=== PATIENT | female | born 2000 | race Caucasian/White ===

== ENCOUNTER 2021-04-18 21:46 | Emergency (ER) | payer BC, SELFPAY ==
[2021-04-18 21:58] VITALS: BP 139/98; PULSE 89; RESP 20; TEMP 36.5; O2SAT 99; BMI 28.1
--- NOTE | 2021-04-18 21:58 | W.ED.ABDPA2 ---
Documented by User: AYSHA Farfan 04/19/21 01:00 HPI - Abdominal Pain General: Chief Complaint: Abdominal Pain Stated Complaint: ABD Pain Time Seen by Provider: 04/18/21 21:58 History of Present Illness: HPI narrative: 20-year-old female comes in today with complaints of epigastric pain for the last 3 to 4 days. Patient has been in to to the emergency room as already. Patient was 1st diagnosed in [place] 2 days ago with food poisoning. Patient then was seen last night at [facility] and was told that she had a ulcer. Patient states the pain today is not as bad as it was last night. Patient reports that her pain was able to be controlled at both visits once with fentanyl and once with morphine. Patient appears well. Patient appears in moderate pain. Patient denies any fever. Patient denies any diarrhea or constipation. Patient does report an episode of emesis today. Patient noted no blood in her emesis. Patient has taken some Tylenol for her pain with no relief. Patient takes olanzapine routinely for mental health condition. Patient reports that her pain is similar to the time she had gallbladder attack. Patient has had her gallbladder removed. MD elicited complaint: abdominal pain Review of Systems General: Reports: 10 or more systems reviewed and unremarkable except in HPI and below GI: Reports: abdominal pain Physical Exam Const: COMMON NORMALS: no acute distress and patient oriented x3 GENERAL APPEARANCE: cooperative HENMT: COMMON NORMALS: normocephalic, TM's normal bilaterally and Normal external nose present HEAD & SCALP: normal to inspection and normocephalic NOSE: Normal external nose present TYMPANIC MEMBRANE: TM's normal bilaterally MOUTH: Normal oral and palatal mucosa present THROAT: posterior oropharynx normal Eye: GENERAL EYE: appearance normal, both eyes and all related structures Neck/C-Spine: COMMON NORMALS: full ROM Lymph: LYMPHATIC: no lymphadenopathy noted Chest: COMMONS NORMALS: normal inspection of the chest Resp: COMMON NORMALS: normal respiratory effort EFFORT & INSPECTION: Yes able to speak in complete sentences Cardio: COMMON NORMALS: regular rate and regular rhythm RATE: regular rate RHYTHM: regular rhythm GI: COMMON NORMALS: Soft to palpation AUSCULTATION: Yes normoactive bowel sounds PALPATION: Yes Soft to palpation and Yes Tenderness to palpation present (GI) (Epigastric) : COMMON NORMALS: Yes no CVA tenderness BLADDER/KIDNEY EXAM: Yes no CVA tenderness Back/Pelvis: COMMON NORMALS: no CVA tenderness and thoracic and lumbar spine normal to inspection Extremity: COMMON NORMALS: normal to inspection Neuro: COMMON NORMALS: patient oriented x3 and moves all extremities Psych: COMMON NORMALS: mental status grossly normal and cooperative Skin: COMMON NORMALS: no rashes or lesions noted GENERAL SKIN EXAM: no rashes or lesions noted Course ED course: 2354, reevaluated patient she states her abdominal pain has improved some. Patient is resting quietly. We are awaiting CT report. Vital Signs: Vital signs: Vital Signs Temperature 97.7 F 04/18/21 21:58 Pulse Rate 78 04/19/21 00:08 Respiratory Rate 18 04/19/21 00:08 Blood Pressure 110/78 04/19/21 00:08 Pulse Oximetry 97 04/19/21 00:08 MDM - Abdominal Pain MDM Narrative: Medical decision making narrative: 20-year-old female patient comes in today for complaints of epigastric abdominal pain. On exam patient has significant discomfort on palpation of the mid epigastric area. No CVA tenderness. Skin is warm and dry. Vital signs are normal. Differential diagnosis includes but not limited to gastritis, pancreatitis, gastroenteritis, urinary tract infection. Urinalysis was unremarkable. CBC and CMP noted some mild elevation in liver enzymes at 40, and 70. CT scan noted some mucosal wall thickening of the stomach and lower esophagus, parenchymal changes were noted to the left kidney suggesting a recent pyelonephritis with scarring, mucosal thickening of the bladder wall was noted also. Recommended patient be treated for gastritis with pantoprazole. We will continue her on antibiotics for her urinary tract infection. Patient will need to follow-up with primary care for further evaluation and referral for endoscopy of the stomach. Lab Data: Labs: Lab Results 04/18/21 04/18/21 04/18/21 22:57 22:57 22:57 WBC 6.4 10^3/uL 10^3/ uL (4.0-10.0) RBC 3.98 10^6/uL L 10 ^6/uL (4.1-5.3) Hgb 12.6 g/dL g/dL (11.5-15.3) Hct 36.3 % L % (37.0-47.0) MCV 91.2 fl fl (81-99) MCH 31.7 pg pg (28.0-34.0) MCHC 34.7 g/dL g/dL (30.0-36.0) RDW 11.6 % L % (12.1-15.1) Plt Count 188 10^3/cmm 10^3 /cmm (130-400) MPV 11.4 fL H fL (7.4-10.4) Neut % (Auto) 66.0 % % Lymph % (Auto) 24.8 % % J[place] % (Auto) 8.3 % % Eos % (Auto) 0.6 % % Baso % (Auto) 0.3 % % Neut # (Auto) 4.23 10^3/uL 10^3 /uL (1.8-7.7) Lymph # (Auto) 1.6 10^3/uL 10^3/ uL (0.8-4.8) J[place] # (Auto) 0.5 10^3/uL 10^3/ uL (0.2-0.9) Eos # (Auto) 0.0 10^3/uL 10^3/ uL (0.0-0.8) Baso # (Auto) 0.0 10^3/uL 10^3/ uL (0.0-0.1) Nucleated RBC % (a uto) 0 % % Nucleated RBCs # 0.0 /100WBC /100W BC Sodium 139 mmol/L mmol/L (136-145) Potassium 3.6 mmol/L mmol/L (3.5-5.1) Chloride 103 mmol/L mmol/L (98-107) Carbon Dioxide 27 mmol/L mmol/L (22-29) Anion Gap 12.6 (5-19) BUN 7 mg/dL mg/dL (6-20) Creatinine 0.8 mg/dL mg/dL (0.5-0.9) GFR Calculation 90.5 mL/min mL/mi n (90-130) Glucose 93 mg/dL mg/dL (65-115) Calculated Osmolal ity 286 mOsm/kg mOsm/ kg (285-295) Calcium 9.1 mg/dL mg/dL (8.5-10.5) Total Bilirubin 0.3 mg/dL mg/dL (0.15-1.2) AST 40 U/L H U/L (0-32) ALT 73 U/L H U/L (0-33) Alkaline Phosphata se 75 IU/L IU/L (35-105) Total Protein 6.7 g/dL g/dL (6.6-8.7) Albumin 4.3 g/dL g/dL (3.5-5.2) Globulin 2.4 g/dL g/dL (1.3-4.6) Lipase 22 U/L U/L (13-60) HCG, Qual Negative (Negative) Urine Color Urine Appearance Urine pH Ur Specific Gravit y Urine Protein Urine Glucose (UA) Urine Ketones Urine Blood Urine Nitrate Urine Bilirubin Urine Urobilinogen Ur Leukocyte Keri ase 04/18/21 23:05 WBC RBC Hgb Hct MCV MCH MCHC RDW Plt Count MPV Neut % (Auto) Lymph % (Auto) J[place] % (Auto) Eos % (Auto) Baso % (Auto) Neut # (Auto) Lymph # (Auto) J[place] # (Auto) Eos # (Auto) Baso # (Auto) Nucleated RBC % (a uto) Nucleated RBCs # Sodium Potassium Chloride Carbon Dioxide Anion Gap BUN Creatinine GFR Calculation Glucose Calculated Osmolal ity Calcium Total Bilirubin AST ALT Alkaline Phosphata se Total Protein Albumin Globulin Lipase HCG, Qual Urine Color Yellow (Yellow) Urine Appearance Clear (CLEAR) Urine pH 7 (5-7) Ur Specific Gravit y 1.005 (1.005-1.030) Urine Protein Neg (Negative) Urine Glucose (UA) Norm (Normal) Urine Ketones Negative (Negative) Urine Blood Neg (Negative) Urine Nitrate Negative (Negative) Urine Bilirubin Neg (Negative) Urine Urobilinogen 1 mg/dL H mg/dL (Negative) Ur Leukocyte Keri ase Negative (Negative) Discharge Plan Discharge Patient Disposition: Home Clinical Impression: Gastritis Qualifiers: Gastritis type: other gastritis Chronicity: acute Gastritis bleeding: without bleeding Qualified Code(s): K29.00 - Acute gastritis without bleeding UTI (urinary tract infection) Qualifiers: Urinary tract infection type: acute cystitis Hematuria presence: without hematuria Qualified Code(s): N30.00 - Acute cystitis without hematuria Condition: Stable Prescriptions: New cephalexin 500 mg capsule 500 mg PO BID 5 Days Qty: 10 RF: 0 pantoprazole 40 mg tablet,delayed release (DR/EC) 40 mg PO DAILY 28 Days Qty: 28 RF: 0 Discharge Orders: Discharge ED (Routine); Ordered 04/19/21 Ordered By: Dane Hopper Referrals: Fred Null MD [Primary Care Provider] - Discharge Diet: Usual diet Discharge Activity: Increase activity as tolerated Patient Instructions: Gastritis (ED), Diet for Stomach Ulcers and Gastritis (ED), Opioid Safety Activity Restrictions/Additional Instructions: Home and rest. Drink plenty of water. Avoid carbonated beverages, spicy foods, greasy foods, and really acidic foods. Follow recommendations of diet for ulcers and gastritis. Use pantoprazole daily, take it 30 minutes before your first meal of the day. Use cephalexin twice a day for the next 5 days for your urinary tract infection. Follow-up with primary care in 3 days for recheck. You may need to have a endoscopy of your stomach to evaluate for further ulcer and gastritis concerns. Coding Level of Care Code ED Urgent Care Technician for Chg Fwd Exam Comprehensive Documented by User: Uli Vieyra DO 04/19/21 01:17 HPI - Abdominal Pain General: Chief Complaint: Abdominal Pain Stated Complaint: ABD Pain Time Seen by Provider: 04/18/21 21:58 Course Vital Signs: Vital signs: Vital Signs Temperature 97.7 F 04/18/21 21:58 Pulse Rate 78 04/19/21 00:08 Respiratory Rate 18 04/19/21 00:08 Blood Pressure 110/78 04/19/21 00:08 Pulse Oximetry 97 04/19/21 00:08 MDM - Abdominal Pain MDM Narrative: Medical decision making narrative: This patient was originally seen by AYSHA Pan. I agree with his history, evaluation, and treatment. Lab Data: Labs: Lab Results 04/18/21 04/18/21 04/18/21 22:57 22:57 22:57 WBC 6.4 10^3/uL 10^3/ uL (4.0-10.0) RBC 3.98 10^6/uL L 10 ^6/uL (4.1-5.3) Hgb 12.6 g/dL g/dL (11.5-15.3) Hct 36.3 % L % (37.0-47.0) MCV 91.2 fl fl (81-99) MCH 31.7 pg pg (28.0-34.0) MCHC 34.7 g/dL g/dL (30.0-36.0) RDW 11.6 % L % (12.1-15.1) Plt Count 188 10^3/cmm 10^3 /cmm (130-400) MPV 11.4 fL H fL (7.4-10.4) Neut % (Auto) 66.0 % % Lymph % (Auto) 24.8 % % J[place] % (Auto) 8.3 % % Eos % (Auto) 0.6 % % Baso % (Auto) 0.3 % % Neut # (Auto) 4.23 10^3/uL 10^3 /uL (1.8-7.7) Lymph # (Auto) 1.6 10^3/uL 10^3/ uL (0.8-4.8) J[place] # (Auto) 0.5 10^3/uL 10^3/ uL (0.2-0.9) Eos # (Auto) 0.0 10^3/uL 10^3/ uL (0.0-0.8) Baso # (Auto) 0.0 10^3/uL 10^3/ uL (0.0-0.1) Nucleated RBC % (a uto) 0 % % Nucleated RBCs # 0.0 /100WBC /100W BC Sodium 139 mmol/L mmol/L (136-145) Potassium 3.6 mmol/L mmol/L (3.5-5.1) Chloride 103 mmol/L mmol/L (98-107) Carbon Dioxide 27 mmol/L mmol/L (22-29) Anion Gap 12.6 (5-19) BUN 7 mg/dL mg/dL (6-20) Creatinine 0.8 mg/dL mg/dL (0.5-0.9) GFR Calculation 90.5 mL/min mL/mi n (90-130) Glucose 93 mg/dL mg/dL (65-115) Calculated Osmolal ity 286 mOsm/kg mOsm/ kg (285-295) Calcium 9.1 mg/dL mg/dL (8.5-10.5) Total Bilirubin 0.3 mg/dL mg/dL (0.15-1.2) AST 40 U/L H U/L (0-32) ALT 73 U/L H U/L (0-33) Alkaline Phosphata se 75 IU/L IU/L (35-105) Total Protein 6.7 g/dL g/dL (6.6-8.7) Albumin 4.3 g/dL g/dL (3.5-5.2) Globulin 2.4 g/dL g/dL (1.3-4.6) Lipase 22 U/L U/L (13-60) HCG, Qual Negative (Negative) Urine Color Urine Appearance Urine pH Ur Specific Gravit y Urine Protein Urine Glucose (UA) Urine Ketones Urine Blood Urine Nitrate Urine Bilirubin Urine Urobilinogen Ur Leukocyte Keri ase 04/18/21 23:05 WBC RBC Hgb Hct MCV MCH MCHC RDW Plt Count MPV Neut % (Auto) Lymph % (Auto) [place] % (Auto) Eos % (Auto) Baso % (Auto) Neut # (Auto) Lymph # (Auto) [place] # (Auto) Eos # (Auto) Baso # (Auto) Nucleated RBC % (a uto) Nucleated RBCs # Sodium Potassium Chloride Carbon Dioxide Anion Gap BUN Creatinine GFR Calculation Glucose Calculated Osmolal ity Calcium Total Bilirubin AST ALT Alkaline Phosphata se Total Protein Albumin Globulin Lipase HCG, Qual Urine Color Yellow (Yellow) Urine Appearance Clear (CLEAR) Urine pH 7 (5-7) Ur Specific Gravit y 1.005 (1.005-1.030) Urine Protein Neg (Negative) Urine Glucose (UA) Norm (Normal) Urine Ketones Negative (Negative) Urine Blood Neg (Negative) Urine Nitrate Negative (Negative) Urine Bilirubin Neg (Negative) Urine Urobilinogen 1 mg/dL H mg/dL (Negative) Ur Leukocyte Keri ase Negative (Negative) Discharge Plan Discharge Patient Disposition: Home Clinical Impression: Gastritis Qualifiers: Gastritis type: other gastritis Chronicity: acute Gastritis bleeding: without bleeding Qualified Code(s): K29.00 - Acute gastritis without bleeding UTI (urinary tract infection) Qualifiers: Urinary tract infection type: acute cystitis Hematuria presence: without hematuria Qualified Code(s): N30.00 - Acute cystitis without hematuria Condition: Stable Prescriptions: New cephalexin 500 mg capsule 500 mg PO BID 5 Days Qty: 10 RF: 0 pantoprazole 40 mg tablet,delayed release (DR/EC) 40 mg PO DAILY 28 Days Qty: 28 RF: 0 Discharge Orders: Discharge ED (Routine); Ordered 04/19/21 Ordered By: Dane Hopper Referrals: Fred Null MD [Primary Care Provider] - Discharge Diet: Usual diet Discharge Activity: Increase activity as tolerated Patient Instructions: Gastritis (ED), Diet for Stomach Ulcers and Gastritis (ED), Opioid Safety Activity Restrictions/Additional Instructions: Home and rest. Drink plenty of water. Avoid carbonated beverages, spicy foods, greasy foods, and really acidic foods. Follow recommendations of diet for ulcers and gastritis. Use pantoprazole daily, take it 30 minutes before your first meal of the day. Use cephalexin twice a day for the next 5 days for your urinary tract infection. Follow-up with primary care in 3 days for recheck. You may need to have a endoscopy of your stomach to evaluate for further ulcer and gastritis concerns. Coding Level of Care Code ED Urgent Care Technician for Chg Fwd Exam Comprehensive
--- NOTE | 2021-04-18 22:10 | CTR_ITS ---
PROCEDURE INFORMATION: Exam: CT Abdomen And Pelvis With Contrast Exam date and time: 04/18/2021 10:10 PM Age: 20 years old Clinical indication: Abdominal pain; Prior surgery; Surgery date: 6+ months; Surgery type: Gb; Patient HX: C/O epigastric pain; Additional info: Epigastric diffuse pain TECHNIQUE: Imaging protocol: Computed tomography of the abdomen and pelvis with contrast. Radiation optimization: All CT scans at this facility use at least one of these dose optimization techniques: automated exposure control; mA and/or kV adjustment per patient size (includes targeted exams where dose is matched to clinical indication); or iterative reconstruction. Contrast material: OMNI 300; Contrast volume: 95 ml; Contrast route: INTRAVENOUS (IV); COMPARISON: No relevant prior studies available. RADIATION DOSE METRICS: Total DLP (mGy-cm): 1459.34 FINDINGS: Lungs: The lung bases are clear. Mediastinal space: There may be some mucosal/wall thickening involving the lower esophagus. This is nonspecific, but could represent evidence for esophagitis. Neoplasm not entirely excluded. Please correlate clinically. Liver: There is mild periportal edema in the liver. This is a nonspecific finding, that can be seen in hepatitis and other hepatic abnormalities. It can also be a nonsignificant finding, sometimes seen in overhydration. Please correlate clinically. Gallbladder and bile ducts: Prior cholecystectomy, no significant biliary tree dilation. Pancreas: Unremarkable. Spleen: Unremarkable. Adrenal glands: Unremarkable. Kidneys and ureters: The left kidney appears slightly smaller than the left, with mild and somewhat irregular parenchymal thinning/scarring. The appearance raises likelihood of prior episodes of pyelonephritis. Possibility of a few subtle areas of poor/decreased enhancement in the left kidney. Acute/active pyelonephritis might be considered, although these findings could also be related to chronic infection. Please correlate clinically. No significant hydronephrosis of either kidney. No visible ureteral calculus. No perinephric fluid. The right kidney appears essentially unremarkable. Stomach and bowel: Possibility of slightly thickened mucosa/wall in the distal antrum of the stomach. This is a nonspecific appearance, and could well be transient on CT, but could also represent evidence for gastritis or peptic ulcer disease. Please correlate clinically. No significant bowel distention. There are no CT findings to strongly suggest diverticulitis. Appendix: The appendix is visualized and appears normal. Intraperitoneal space: No free intraperitoneal air, or generalized ascites. Vasculature: No evidence for abdominal aortic aneurysm. Lymph nodes: No retroperitoneal adenopathy. Urinary bladder: Possible mild to moderate diffuse urinary bladder wall thickening. Evaluation is somewhat limited, as the bladder is not well distended. While nonspecific, this could indicate evidence for cystitis. Please correlate clinically. Reproductive: The right ovary contains a 12 mm dominant follicle versus very small cyst. Significance unlikely due to small size. Small amount of cul-de-sac fluid. Bones/joints: No significant acute finding. Soft tissues: No significant acute finding. CT/CT abdomen pelvis w con* [id number] IMPRESSION: 1. Left renal parenchymal scarring/thinning, probably related to prior infection. Subtle findings that could represent active/acute left pyelonephritis, although the findings are not specific. See above discussion. 2. No significant hydronephrosis of either kidney. No visible ureteral calculus. 3. Suspected urinary bladder wall thickening, possibly related to cystitis. 4. Possible thickened mucosa/wall in the distal stomach, see above discussion. 5. Normal appendix. 6. Mild periportal edema in the liver, see above. 7. Possibly some thickening of the lower esophagus, see above discussion. 8. The right ovary contains a 12 mm dominant follicle versus very small cyst. Significance unlikely due to small size. Small amount of cul-de-sac fluid. 9. Other findings discussed above. Radiation Dose CTDIVOL = (mGy): DLP = 1459.34 (mGy-cm)
[2021-04-18] MEDS: pantoprazole 40 mg SDV IVP (22:49)
[2021-04-18] MEDS: diphenhydrAMINE 50 mg/mL SDV 1mL 12.5 MG IVP (22:49)
[2021-04-18] MEDS: haloperidol inj 5 mg/mL INJ 1 mL 2.5 MG IVP (22:49)
[2021-04-18 23:09] LABS: Add Urine Microscopic? NO; Charge for UA Resulting for Rev
[2021-04-18 23:14] LABS: HCG, Serum Qual Negative (Negative)
[2021-04-18 23:14] LABS: Bilirubin Urine Neg (Negative); Blood Urine Neg (Negative); Glucose Urine UA Norm (Normal); Ketones Urine Negative (Negative); Leukocyte Esterase Urine Negative (Negative); Nitrate Urine Negative (Negative); Protein Urine Neg (Negative); Specific Gravity, Urine 1.005 (1.005-1.030); Urine Appearance Clear (CLEAR); Urine Color Yellow (Yellow); Urobilinogen Urine 1 mg/dL (Negative); pH Urine 7 (5-7)
[2021-04-18 23:19] LABS: Basophils % 0.3 %; Eosinophils % 0.6 %; Hematocrit 36.3 % (37.0-47.0); Hemoglobin 12.6 g/dL (11.5-15.3); Lymphocytes # 1.6 10^3/uL (0.8-4.8); Lymphocytes % 24.8 %; Mean Corpuscular HGB Conc 34.7 g/dL (30.0-36.0); Mean Corpuscular Hemoglobin 31.7 pg (28.0-34.0); Mean Corpuscular Volume 91.2 fl (81-99); Mean Platelet Volume 11.4 fL (7.4-10.4); Monocytes # 0.5 10^3/uL (0.2-0.9); Monocytes % 8.3 %; Neutrophils # 4.23 10^3/uL (1.8-7.7); Nucleated Red Blood Cells % 0 %; Platelet Count 188 10^3/cmm (130-400); Red Blood Count 3.98 10^6/uL (4.1-5.3); Red Cell Distribution Width 11.6 % (12.1-15.1); White Blood Count 6.4 10^3/uL (4.0-10.0)
[2021-04-18 23:23] LABS: Alanine Aminotransferase 73 U/L (0-33); Albumin Level 4.3 g/dL (3.5-5.2); Alkaline Phosphatase 75 IU/L (35-105); Anion Gap 12.6 (5-19); Aspartate Amino Transferase 40 U/L (0-32); Blood Urea Nitrogen 7 mg/dL (6-20); Calcium 9.1 mg/dL (8.5-10.5); Carbon Dioxide 27 mmol/L (22-29); Chloride 103 mmol/L (98-107); Globulin 2.4 g/dL (1.3-4.6); Glomerular Filtration Rate 90.5 mL/min (90-130); Glucose 93 mg/dL (65-115); Lipase 22 U/L (13-60); Osmolality Calculated 286 mOsm/kg (285-295); Potassium 3.6 mmol/L (3.5-5.1); Sodium 139 mmol/L (136-145); Total Bilirubin 0.3 mg/dL (0.15-1.2); Total Protein 6.7 g/dL (6.6-8.7)
[2021-04-18] MEDS: sodium chloride 0.9% 1,000 ML 999 ML IV (23:33)
[2021-04-18] MEDS: iohexol 300 mg/mL 100 mL Btl IV (23:37)
[2021-04-18 23:56] VITALS: BP 109/56; PULSE 88; RESP 18; O2SAT 99
[2021-04-19 00:08] VITALS: BP 110/78; PULSE 78; RESP 18; O2SAT 97
[2021-04-19] MEDS: HYDROcodone-acetaminophen 5-325 mg Tablet 1 TAB PO (01:01)
[2021-04-19] MEDS: cefTRIAXone 1,000 MG in sodium chloride 0.9% (plus) 50 ML 100 MG IV (01:01)
[2021-04-19 01:27] VITALS: BP 110/79; PULSE 62; RESP 16; O2SAT 98
--- NOTE | 2021-04-21 15:24 | DCPLANNER ---
mechanical project manager had message to speak with patient about getting established with a primary care physician. mechanical project manager called phone number [phone], unable to speak with patient at this time, and unable to leave a voicemail.
== END 2021-04-19 01:28 | disposition home or self-care (01) ==
PROVIDERS: Emergency Provider Nurse Practitioner Family; PCP Family Medicine
DX: K29.00 Acute gastritis without bleeding (principal); N30.00 Acute cystitis without hematuria
CPT/HCPCS: 74177; 80053; 81003; 83690; 84703; 85025; 96365; 96375; 99284; C9113; J0696; J1200; J1630; J7030; Q9967

== ENCOUNTER 2021-07-24 19:53 | Emergency (ER) | payer BC, MEDICAID, SELFPAY ==
[2021-07-24 20:05] VITALS: BP 119/79; PULSE 107; RESP 16; TEMP 36.7; O2SAT 99
--- NOTE | 2021-07-25 00:09 | ED_ITS ---
HPI - Abdominal Pain General: Chief Complaint: Abdominal Pain Stated Complaint: ADB Pain Time Seen by Provider: 07/24/21 23:56 History of Present Illness: Patient is a 20-year-old female comes to the ED with nausea vomiting and acid reflux. Symptoms started approximately 4 days ago. She has had these symptoms before approximately 3 months ago and was diagnosed with gastritis discharged home with Protonix. She says she has been taking her Protonix daily as prescribed and that has helped her acid reflux a lot. She is not sure what caused her acid reflux to get worse but said 4 days ago she started getting the epigastric burning along with nausea and vomiting. For the past couple days she has had trouble keeping any food down. Epigastric pain rated about 6 or 7 out of 10. Patient had her gallbladder removed 2 years ago. Associated Symptoms: Reports heartburn, nausea and vomiting; Denies chills, constipation, diarrhea, dysuria, fever(s), hematochezia and hematuria Related Data: Date of Last Menstrual Period: 04/03/21 Review of Systems Const: Denies: fever(s), chills or fatigue Eyes: Denies: change in vision or eye discomfort ENMT: Denies: throat pain, odynophagia, nasal discharge or nasal congestion Card: Denies: chest pain, palpitations, edema, swelling of feet/ankles, dyspnea on exertion or orthopnea Resp: Denies: dyspnea, productive cough or non-productive cough GI: Reports: nausea, vomiting and heartburn; Denies: abdominal pain, diarrhea, constipation or hematochezia : Denies: flank pain, dysuria or hematuria Musc: Denies: neck pain, back pain or extremity swelling Skin/Breast: Denies: rash or new lesions Neuro: Denies: headache(s), numbness in extremities or weakness in extremities PFS ED PFSH: Medical History No pertinent family history Surgical History Hx of cholecystectomy Female Reproductive History: Date of last menstrual period: 04/03/21 Physical Exam Const: COMMON NORMALS: no acute distress, patient oriented x3, healthy appearing and alert GENERAL APPEARANCE: cooperative and comfortable HENMT: COMMON NORMALS: normocephalic HEAD & SCALP: normocephalic MOUTH: Normal oral and palatal mucosa present THROAT: posterior oropharynx normal and uvula midline Eye: COMMON NORMALS: Equal, round and reactive pupils present GENERAL EYE: appearance normal, both eyes and all related structures PUPIL: Yes Equal, round and reactive pupils present Neck/C-Spine: COMMON NORMALS: supple GENERAL: Yes normal visual inspection Resp: COMMON NORMALS: normal respiratory effort, No retractions, No use of accessory muscles and clear to auscultation bilaterally AUSCULTATION: clear to auscultation bilaterally Cardio: COMMON NORMALS: regular rate, regular rhythm, S1 normal heart sound present, S2 normal heart sound present, No gallops present (Cardio), No clicks present (Cardio), No murmurs present (Cardio) and Peripheral pulses 2+ thro ughout RATE: regular rate RHYTHM: regular rhythm HEART SOUNDS: S1 normal heart sound present and S2 normal heart sound present PERIPHERAL PULSES: Peripheral pulses 2+ throughout GI: COMMON NORMALS: Normal to inspection, nondistended, normoactive bowel sounds present, Soft to palpation and no masses PALPATION: Yes Soft to palpation and Yes Tenderness to palpation present (GI) (epigastric region) Details: Negative for RUQ : COMMON NORMALS: Yes no CVA tenderness BLADDER/KIDNEY EXAM: Yes no CVA tenderness Back/Pelvis: COMMON NORMALS: no CVA tenderness Extremity: COMMON NORMALS: normal to inspection and no pedal edema Neuro: COMMON NORMALS: patient oriented x3 SENSORIUM/ORIENTATION: Yes alert GAIT: Yes Normal gait present Skin: GENERAL SKIN EXAM: dry skin Course ED course: After patient received IV fluids, Zofran and GI cocktail her symptoms improved greatly. Patient says her epigastric discomfort went down to 2 or 3 out of 10 Vital Signs: Vital signs: Vital Signs Temperature 98.1 F 07/24/21 20:05 Pulse Rate 107 H 07/24/21 20:05 Respiratory Rate 16 07/25/21 01:42 Blood Pressure 119/79 07/24/21 20:05 Pulse Oximetry 99 07/24/21 20:05 MDM - Abdominal Pain Medical Decision Making Patient is a 20-year-old female comes to the ED with nausea vomiting and acid reflux. Symptoms started approximately 4 days ago. She has had these symptoms before approximately 3 months ago and was diagnosed with gastritis discharged home with Protonix. She says she has been taking her Protonix daily as prescribed and that has helped her acid reflux a lot. She is not sure what caused her acid reflux to get worse but said 4 days ago she started getting the epigastric burning along with nausea and vomiting. Vital stable. Patient appears in no acute distress or pain. She has some mild epigastric tenderness but no other abdominal tenderness. Rest of exam is benign. Labs are unremar kable. Patient was given IV fluids, Zofran and GI cocktail. Patient's symptoms improved after meds. Patient diagnosed with acid reflux disease and discharged home with a refill prescription for Protonix. She also was sent home with a prescription for Zofran and sucralfate. She was told to follow-up with her PCP in the next 5-7days for reevaluation. She was given strict return to ED precautions. She was told to be on a clear liquid diet for the next 24 hours and advance slowly as tolerated. Patient understood and agreed with plan. Lab Data I reviewed the patient's lab results. : 07/25/21 00:26 07/25/21 00:26 Labs/Radiology: Laboratory Results WBC 6.3 10^3/uL (4.0-10.0) 07/25/21 00:26 RBC 4.30 10^6/uL (4.1-5.3) 07/25/21 00:26 Hgb 13.4 g/dL (11.5-15.3) 07/25/21 00:26 Hct 38.9 % (37.0-47.0) 07/25/21 00: MCV 90.5 fl (81-99) 07/25/21 00: MCH 31.2 pg (28.0-34.0) 07/25/21 00: MCHC 34.4 g/dL (30.0-36.0) 07/25/21 00: RDW 11.9 % (12.1-15.1) L 07/25/21 00:26 Plt Count 229 10^3/cmm (130-400) 07/25/21 00:26 MPV 11.1 fL (7.4-10.4) H 07/25/21 00: Neut % (Auto) 69.8 % 07/25/21 00:26 Lymph % (Auto) 18.5 % 07/25/21 00:26 [place] % (Auto) 9.8 % 07/25/21 00:26 Eos % (Auto) 1.4 % 07/25/21 00:26 Baso % (Auto) 0.3 % 07/25/21 00: Neut # (Auto) 4.41 10^3/uL (1.8-7.7) 07/25/21 00:26 Lymph # (Auto) 1.2 10^3/uL (0.8-4.8) 07/25/21 00:26 [place] # (Auto) 0.6 10^3/uL (0.2-0.9) 07/25/21 00:26 Eos # (Auto) 0.1 10^3/uL (0.0-0.8) 07/25/21 00: Baso # (Auto) 0.0 10^3/uL (0.0-0.1) 07/25/21 00:26 Nucleated RBC % (auto) 0 % 07/25/21 00: Nucleated RBCs # 0.0 /100WBC 07/25/21 00:26 Sodium 137 mmol/L (136-145) 07/25/21 00:26 Potassium 3.8 mmol/L (3.5-5.1) 07/25/21 00: Chloride 101 mmol/L (98-107) 07/25/21 00: Carbon Dioxide 23 mmol/L (22-29) 07/25/21 00:26 Anion Gap 16.8 (5-19) 07/25/21 00: BUN 9 mg/dL (6-20) 07/25/21 00: Creatinine 0.8 mg/dL (0.5-0.9) 07/25/21 00: GFR Calculation 90.5 mL/min (90-130) 07/25/21 00: Glucose 107 mg/dL (65-115) 07/25/21 00: Calculated Osmolality 283 mOsm/kg (285-295) L 07/25/21 00: Calcium 9.9 mg/dL (8.5-10.5) 07/25/21 00: Total Bilirubin 0.6 mg/dL (0.15-1.2) 07/25/21 00: AST 18 U/L (0-32) 07/25/21 00:26 ALT 17 U/L (0-33) 07/25/21 00:26 Alkaline Phosphatase 76 IU/L (35-105) 07/25/21 00:26 Total Protein 7.7 g/dL (6.6-8.7) 07/25/21 00:26 Albumin 4.9 g/dL (3.5-5.2) 07/25/21 00:26 Globulin 2.8 g/dL (1.3-4.6) 07/25/21 00:26 Lipase 18 U/L (13-60) 07/25/21 00:26 HCG, Qual Negative (Negative) 07/25/21 00:26 Urine Color Yellow (Yellow) 07/25/21 00:15 Urine Appearance Clear (CLEAR) 07/25/21 00:15 Urine pH 5 (5-7) 07/25/21 00:15 Ur Specific [place] 1.015 (1.005-1.030) 07/25/21 00:15 Urine Protein Neg (Negative) 07/25/21 00:15 Urine Glucose (UA) Norm (Normal) 07/25/21 00:15 Urine Ketones Negative (Negative) 07/25/21 00:15 Urine Blood Neg (Negative) 07/25/21 00:15 Urine Nitrate Negative (Negative) 07/25/21 00:15 Urine Bilirubin Neg (Negative) 07/25/21 00:15 Urine Urobilinogen Norm mg/dL (Negative) 07/25/21 00:15 Ur Leukocyte Esterase Trace (Negative) H 07/25/21 00:15 Urine RBC 0-4 /hpf (0-2) H 07/25/21 00:15 Urine WBC 10-15 /hpf (0-5) H 07/25/21 00:15 Ur Squamous Epith Cells 15-25 /hpf (0-5) H 07/25/21 00:15 Amorphous Sediment Not Reportable 07/25/21 00:15 Urine Bacteria 2+ /hpf (NONE) H 07/25/21 00:15 Urine Mucus 2+ /hpf 07/25/21 00:15 Discharge Plan Discharge Patient Disposition: Home Clinical Impression: Acid reflux disease Qualifiers: Esophagitis presence: esophagitis presence not specified Qualified Code(s): K21.9 - Gastro-esophageal reflux disease without esophagitis Condition: Stable Prescriptions: New pantoprazole 40 mg tablet,delayed release (DR/EC) 40 mg PO DAILY 28 Days Qty: 30 0RF ondansetron 4 mg tablet,disintegrating 4 mg PO Q8H PRN (Reason: nausea and vomiting) Qty: 20 0RF sucralfate 1 gram tablet 1 g PO Q6H Qty: 30 0RF Rx Instructions: Take every 6 hours before meals during acute episodes. As symptoms improve take 1 every 12 hours daily. Discharge Orders: Discharge ED (Routine); Ordered 07/25/21 Ordered By: Neil Sneed Referrals: Fred Null MD [Primary Care Provider] - Discharge Diet: Advance as tolerated and Clear Liquid Discharge Activity: Increase activity as tolerated Patient Instructions: Gastritis (ED), Diet for Stomach Ulcers and Gastritis (ED), GERD (Gastroesophageal Reflux Disease) (DC) Activity Restrictions/Additional Instructions: Follow-up with medical provider as directed in 5 to 7 days for reevaluation.Take medications as prescribed. Start with a clear liquid diet for the next 24 hours then advance diet as tolerated. Return to the ER or your medical provider if condition worsens. Please read and understand discharge instructions. Thank you for choosing [facility] for your healthcare needs today. Please realize this is an emergency room and that we are providing you with a medical screening exam and this may not be complete and all inclusive of all the testing and or work up that you may need to determine your ailment or severity o f your illness. It is very important that you follow up as instructed or that you return to the Emergency Department should you have concerns or if your condition changes or worsens in any way. Coding Level of Care Code ED Health And Wellness Director for Moriah Gao Exam Comprehensive
[2021-07-25] MEDS: lidocaine 2% viscous 15 ML, aluminum-mag hydrox-simethicon 30 ML, sucralfate oral liq 1 GM PO (00:26)
[2021-07-25] MEDS: ondansetron 2 mg/ML SDV 2 mL 4 MG IVP (00:26)
[2021-07-25] MEDS: sodium chloride 0.9% 500 ML 999 ML IV (00:26)
[2021-07-25 00:38] LABS: Basophils % 0.3 %; Eosinophils # 0.1 10^3/uL (0.0-0.8); Eosinophils % 1.4 %; Hematocrit 38.9 % (37.0-47.0); Hemoglobin 13.4 g/dL (11.5-15.3); Lymphocytes # 1.2 10^3/uL (0.8-4.8); Lymphocytes % 18.5 %; Mean Corpuscular HGB Conc 34.4 g/dL (30.0-36.0); Mean Corpuscular Hemoglobin 31.2 pg (28.0-34.0); Mean Corpuscular Volume 90.5 fl (81-99); Mean Platelet Volume 11.1 fL (7.4-10.4); Monocytes # 0.6 10^3/uL (0.2-0.9); Monocytes % 9.8 %; Neutrophils # 4.41 10^3/uL (1.8-7.7); Neutrophils % 69.8 %; Nucleated Red Blood Cells % 0 %; Platelet Count 229 10^3/cmm (130-400); Red Cell Distribution Width 11.9 % (12.1-15.1); White Blood Count 6.3 10^3/uL (4.0-10.0)
[2021-07-25 00:55] LABS: Add Urine Microscopic? YES; Bilirubin Urine Neg (Negative); Blood Urine Neg (Negative); Glucose Urine UA Norm (Normal); Ketones Urine Negative (Negative); Leukocyte Esterase Urine Trace (Negative); Nitrate Urine Negative (Negative); Protein Urine Neg (Negative); Specific Gravity, Urine 1.015 (1.005-1.030); Urine Appearance Clear (CLEAR); Urine Color Yellow (Yellow); Urobilinogen Urine Norm (Negative); pH Urine 5 (5-7)
[2021-07-25 00:56] LABS: HCG, Serum Qual Negative (Negative)
[2021-07-25 00:57] LABS: Add Urine Culture? No; Bacteria Urine 2+ /hpf; Mucus Urine 2+ /hpf; RBC Urine 0-4 /hpf (0-2); Squamous Epithelial Cell Urine 15-25 /hpf (0-5)
[2021-07-25 01:05] LABS: Alanine Aminotransferase 17 U/L (0-33); Albumin Level 4.9 g/dL (3.5-5.2); Alkaline Phosphatase 76 IU/L (35-105); Anion Gap 16.8 (5-19); Aspartate Amino Transferase 18 U/L (0-32); Blood Urea Nitrogen 9 mg/dL (6-20); Calcium 9.9 mg/dL (8.5-10.5); Carbon Dioxide 23 mmol/L (22-29); Chloride 101 mmol/L (98-107); Globulin 2.8 g/dL (1.3-4.6); Glomerular Filtration Rate 90.5 mL/min (90-130); Glucose 107 mg/dL (65-115); Lipase 18 U/L (13-60); Osmolality Calculated 283 mOsm/kg (285-295); Potassium 3.8 mmol/L (3.5-5.1); Sodium 137 mmol/L (136-145); Total Bilirubin 0.6 mg/dL (0.15-1.2); Total Protein 7.7 g/dL (6.6-8.7)
[2021-07-25 01:42] VITALS: RESP 16
== END 2021-07-25 01:42 | disposition home or self-care (01) ==
PROVIDERS: Emergency Medicine; Emergency Provider Physician Assistant; PCP Family Medicine
DX: K21.9 Gastro-esophageal reflux disease without esophagitis (principal)
CPT/HCPCS: 80053; 81001; 83690; 84703; 85025; 96374; 99283; J2405; J7040

== ENCOUNTER → 2022-06-07 13:18 | Outpatient (BNVA) | payer BC, MEDICAID, SELFPAY | PROVIDERS: PCP Family Medicine; Visit Provider Nurse Practitioner Family | DX: Z11.3 Encounter for screening for infections with a predominantly sexual mode of transmission (principal); R53.83 Other fatigue; Z11.59 Encounter for screening for other viral diseases; F20.9 Schizophrenia, unspecified; F31.9 Bipolar disorder, unspecified | CPT/HCPCS: 80053; 80074; 83036; 83550; 86695; 86696; 86704; 86803; 87340; 87389; 87491; 87591; 87661 ==

== ENCOUNTER 2022-06-25 22:58 | Emergency (ER) | payer BC, MEDICAID, SELFPAY ==
[2022-06-25 23:10] VITALS: BP 103/69; PULSE 87; RESP 18; TEMP 36.8; O2SAT 98; BMI 26.6
--- NOTE | 2022-06-25 23:38 | XRR_ITS ---
PROCEDURE INFORMATION: Exam: XR Chest Exam date and time: 06/25/2022 11:54 PM Age: 21 years old Clinical indication: Other: Syncope TECHNIQUE: Imaging protocol: Radiologic exam of the chest. Views: 1 view. COMPARISON: CT abdomen pelvis w con* [id number] 04/18/2021 11:34 PM FINDINGS: Lungs: Unremarkable. No consolidation. Pleural spaces: Unremarkable. No pleural effusion. No pneumothorax. Heart/Mediastinum: Unremarkable. No cardiomegaly. Bones/joints: Unremarkable. XR/XR chest 1V portable [id number] IMPRESSION: No acute findings.
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
--- NOTE | 2022-06-25 23:50 | ECG_ITS ---
[facility] Test Date: 2022-06-25 Pat Name: Stefania Spicer Department: Room: Gender: Female Matchbook Maker: : 2000 Requested By: Ella Tavarez Order Number: [id number] Reading MD: Cathy Cullen M.D. Measurements Intervals [place] Rate: 69 P: 132 IA: 157 QRS: 125 QRSD: 81 T: 113 QT: 384 QTc: 414 Interpretive Statements SINUS RHYTHM LEFT POSTERIOR FASCICULAR BLOCK [QRS AXIS > 109, INFERIOR Q] Possible left atrial enlargement Compared to ECG 04/19/2018 18:15:37 Left posterior fascicular block now present T-wave abnormality no longer present Electronically Signed On 06-26-2022 21:52:01 BOOK JOGGER by Cathy Cullen M.D. [email or web address]
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
[2022-06-26 00:21] LABS: Basophils % 0.4 %; Eosinophils # 0.1 10^3/uL (0.0-0.8); Eosinophils % 0.7 %; Hematocrit 37.7 % (37.0-47.0); Lymphocytes # 1.2 10^3/uL (0.8-4.8); Mean Corpuscular HGB Conc 34.5 g/dL (30.0-36.0); Mean Corpuscular Hemoglobin 31.1 pg (28.0-34.0); Mean Corpuscular Volume 90.2 fl (81-99); Mean Platelet Volume 11.9 fL (7.4-10.4); Monocytes # 0.8 10^3/uL (0.2-0.9); Monocytes % 7.6 %; Neutrophils # 8.37 10^3/uL (1.8-7.7); Neutrophils % 79.9 %; Nucleated Red Blood Cells % 0 %; Platelet Count 233 10^3/cmm (130-400); Red Blood Count 4.18 10^6/uL (4.1-5.3); White Blood Count 10.5 10^3/uL (4.0-10.0)
[2022-06-26] MEDS: HYDROcodone-acetaminophen 5-325 mg Tablet 1 TAB PO ×2 (00:34→02:04)
[2022-06-26 00:41] LABS: Troponin T (5th) Once 6 ng/L (0-10)
[2022-06-26 00:42] LABS: Alanine Aminotransferase 7 U/L (0-33); Albumin Level 4.7 g/dL (3.5-5.2); Alkaline Phosphatase 68 U/L (35-105); Anion Gap 15.6 (5-19); Aspartate Amino Transferase 11 U/L (0-32); Blood Urea Nitrogen 7 mg/dL (6-20); Calcium 9.1 mg/dL (8.5-10.5); Carbon Dioxide 25 mmol/L (22-29); Chloride 100 mmol/L (98-107); Creatinine Clr Calc Pharmacy 122.0519; Globulin 2.1 g/dL (1.3-4.6); Glomerular Filtration Rate 89.7 mL/min (90-130); Glucose 118 mg/dL (65-115); Osmolality Calculated 283 mOsm/kg (285-295); Potassium 3.6 mmol/L (3.5-5.1); Sodium 137 mmol/L (136-145); Total Bilirubin 0.2 mg/dL (0.15-1.2); Total Protein 6.8 g/dL (6.6-8.7)
[2022-06-26 01:02] LABS: HCG Qualitative Urine. Negative (Negative)
[2022-06-26 01:26] LABS: Amphetamines Screen Urine Negative (Negative); Barbiturates Screen Urine Negative (Negative); Benzodiazepines Screen Urine Negative (Negative); Cocaine Screen Urine Negative (Negative); Opiate Screen Urine Negative (Negative); PCP Screen Urine Negative (Negative); THC Screen Urine Positive (Negative)
[2022-06-26] MEDS: tetanus-dipt-pertussis 0.5 mL SDV IM (01:37)
[2022-06-26 02:03] LABS: Glucose Urine UA Trace (Normal); Leukocyte Esterase Urine Trace (Negative); Protein Urine Neg (Negative); Urine Appearance Clear (CLEAR); Urine Color Yellow (Yellow); pH Urine 6 (5-7)
[2022-06-26] MEDS: ketorolac 30 mg/mL INJ IVP (02:03)
[2022-06-26 02:04] LABS: Add Urine Microscopic? YES; Bilirubin Urine Neg (Negative); Blood Urine Neg (Negative); Ketones Urine Negative (Negative); Nitrate Urine Negative (Negative); Urobilinogen Urine Neg (Negative)
[2022-06-26 02:05] LABS: WBC Urine 0-4 /hpf (0-5)
[2022-06-26 02:06] LABS: Bacteria Urine TRACE /hpf; Mucus Urine 1+ /hpf
[2022-06-26 02:07] LABS: Add Urine Culture? No; RBC Urine 0-4 /hpf (0-2)
[2022-06-26 02:45] VITALS: BP 130/81; PULSE 63; RESP 16; O2SAT 97
--- NOTE | 2022-06-28 09:29 | DCPLANNER ---
Addendum entered by Christie Hernandez 07/23/22 14:29: Patient had a follow up appointment scheduled for an echo and a follow up appointment with heart care - patient attended both appointments. Addendum entered by Christie Hernandez 06/29/22 11:05: Patient has an outpatient echo scheduled for Thursday, July 07, 2022 at 7:15. Centralized scheduling will call patient with appointment information. Patient has an appointment scheduled for Thursday, June 30, 2022 at 11:30 at [facility] for a 48 hour halter monitor. Heart care will call patient with appointment information. Original Note: vaccine manager had message to schedule an outpatient halter monitor and an outpatient echo. vaccine manager faxed signed order for echo to centralized scheduling, who will call patient with appointment information. vaccine manager faxed signed order for a halter monitor to heart care, who will call patient with appointment information.
== END 2022-06-26 02:46 | disposition home or self-care (01) ==
PROVIDERS: Emergency Provider Nurse Practitioner; PCP Nurse Practitioner Family
DX: R55 Syncope and collapse (principal); R32 Unspecified urinary incontinence; I44.60 Unspecified fascicular block; S00.83XA Contusion of other part of head, initial encounter; W18.30XA Fall on same level, unspecified, initial encounter; F17.290 Nicotine dependence, other tobacco product, uncomplicated; Z23 Encounter for immunization
CPT/HCPCS: 70450; 70486; 71045; 80053; 80306; 81001; 81025; 84484; 85025; 90471; 90715; 93005; 96374; 99285; J1885

== ENCOUNTER 2022-07-07 07:41 | Outpatient (CLI) | payer BC, SELFPAY ==
--- NOTE | 2022-07-07 07:52 | USCV_ITS ---
Abigailgus Stefania Age: 21 Gender: F : 2000 Exam Date: 07/07/2022 08:34 Ordering Phys: Daryn Jain DO Technologist: Vincent Cartwright [place] [facility] [place]: syncope BP: 120 / 80 HR: 68 Rhythm: Sinus Technical Quality: Adequate MEASUREMENTS (Male / Female) Normal Values 2D ECHO LV Diastolic Diameter PLAX 4.4 cm 4.2 - 5.9 / 3.9 - 5.3 cm LV Systolic Diameter PLAX 2.9 cm IVS Diastolic Thickness 0.8 cm 0.6 - 1.0 / 0.6 - 0.9 cm IVS Systolic Thickness 0.9 cm LVPW Diastolic Thickness 0.7 cm 0.6 - 1.0 / 0.6 - 0.9 cm LVPW Systolic Thickness 1.4 cm LVOT Diameter 2.0 cm LV Ejection Fraction 2D Teich 65.0 % LV Ejection Fraction MOD 2C 65.3 % LV Ejection Fraction 2C AL 65.9 % LA Diameter 3.0 cm LA Width 3.0 cm LA Height 4.5 cm RA Width 2.9 cm RA Height 4.1 cm Aorta at Sinotubular Diameter 1.9 cm IVC Diameter 1.6 cm M-MODE Aortic Annulus Diameter 2.4 cm LA Ao Ratio MM 1.3 MV E Point Septal Separation 0.5 cm DOPPLER AV Peak Velocity 141.7 cm/s LVOT Peak Velocity 122.0 cm/s AV Area Cont Eq vti 2.6 cm squared AV Area Cont Eq pk 2.7 cm squared MV Peak Velocity 107.0 cm/s MV Area PHT 4.4 cm squared Mitral E to A Ratio 2.0 MV E' Velocity 57.5 cm/s Mitral E to MV E' Ratio 5.0 Mitral E to LV E' Lateral Ratio 4.5 Mitral E to LV E' Septal Ratio 5.5 TR Peak Velocity 130.9 cm/s TR Peak Gradient 6.9 mmHg TR Mean Velocity 93.5 cm/s TR Mean Gradient 3.8 mmHg TR Velocity Time Integral 25.3 cm Right Atrial Pressure 3.0 mmHg Pulmonary Artery Systolic Pressu 9.9 mmHg PV Peak Velocity 97.0 cm/s RV Acceleration Time 0.2 s RV Ejection Time 0.3 s RV AcT/ET 0.5 FINDINGS Left Ventricle Left ventricle is normal in size. LV systolic function is normal with EF of 55 to 60%. No regional wall motion abnormalities are seen. Diastolic function is normal Right Ventricle Normal in size and function Right Atrium Normal in size Left Atrium Normal in size Mitral Valve Structurally normal mitral valve. Mild mitral regurgitation. Aortic Valve Structurally normal aortic valve. No significant stenosis or regurgitation is seen Tricuspid Valve Mild tricuspid regurgitation. Pulmonic artery systolic pressure is normal. Pulmonic Valve Not well visualized Pericardium Normal Aorta Normal in size IVC Appears to be normal CONCLUSIONS Left ventricle is normal in size. LV systolic function is normal with EF 55 to 60%. Diastolic function is normal Mild mitral regurgitation Mild tricuspid regurgitation No comparison studies are available Ryan Noriega MD (Electronically Signed) Final Date: 10 July 2022 12:55 S
== END 2022-07-07 07:42 | disposition home or self-care (01) ==
LOC: RAD 07:42
PROVIDERS: PCP Nurse Practitioner Family; Visit Provider Family Medicine
DX: R55 Syncope and collapse (principal); I08.1 Rheumatic disorders of both mitral and tricuspid valves
CPT/HCPCS: 93306

== ENCOUNTER 2023-04-07 14:19 | Emergency (ER) | payer BC, SELFPAY ==
[2023-04-07 14:24] VITALS: BMI 27.3
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
--- NOTE | 2023-04-07 14:26 | PC.NURSE ---
Pt has abrasions to left knee, lower back. Pt has bruising noted to right cheek with abrasion. Pt has abrasion to right elbow. Avulsion noted to lower inner lip.
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
[2023-04-07 14:28] VITALS: BP 121/89; PULSE 90; RESP 18; TEMP 36.2; O2SAT 98
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
[2023-04-07] MEDS: fentaNYL 50 mcg/mL INJ 2mL 100 MCG IVP (14:57)
[2023-04-07] MEDS: ondansetron 2 mg/ML SDV 2 mL 4 MG IVP ×2 (14:57→15:44)
[2023-04-07 15:21] LABS: Basophils % 0.2 %; Eosinophils % 0.2 %; Hematocrit 37.1 % (36-47); Lymphocytes # 0.8 10^3/uL (0.8-4.8); Lymphocytes % 5.8 %; Mean Corpuscular HGB Conc 34.2 g/dL (30-55); Mean Corpuscular Hemoglobin 31.3 pg (27-33); Mean Corpuscular Volume 91.4 fl (85-98); Mean Platelet Volume 11.3 fL (7.4-10.4); Monocytes % 7.5 %; Neutrophils # 11.36 10^3/uL (1.8-7.7); Neutrophils % 85.8 %; Nucleated Red Blood Cells % 0 %; Platelet Count 202 10^3/cmm (157-399); Red Blood Count 4.06 10^6/uL (3.85-5.65); Red Cell Distribution Width 11.8 % (12.1-15.1); White Blood Count 13.24 10^3/uL (3.29-11.43)
[2023-04-07 15:40] LABS: Alanine Aminotransferase 14 U/L (0-33); Albumin Level 4.5 g/dL (3.5-5.2); Alkaline Phosphatase 67 U/L (35-105); Anion Gap 15.1 (5-19); Aspartate Amino Transferase 18 U/L (0-32); Blood Urea Nitrogen 8 mg/dL (6-20); Carbon Dioxide 25 mmol/L (22-29); Chloride 101 mmol/L (98-107); Globulin 2.5 g/dL (1.3-4.6); Glomerular Filtration Rate 68.7 mL/min (90-130); Glucose 144 mg/dL (65-115); Osmolality Calculated 287 mOsm/kg (285-295); Potassium 3.1 mmol/L (3.5-5.1); Sodium 138 mmol/L (136-145); Total Bilirubin 0.3 mg/dL (0.15-1.2)
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
[2023-04-07] MEDS: LORazepam 1 mg Tablet PO (15:44)
[2023-04-07] MEDS: HYDROmorphone 1 mg/mL INJ 1 mL 0.5 MG IVP (17:38)
[2023-04-07] MEDS: sodium chloride 0.9% 1,000 ML 999 ML IV (17:38)
[2023-04-07 19:16] VITALS: RESP 18
[2023-04-07] MEDS: HYDROmorphone 1 mg/mL INJ 1 mL IVP (19:16)
== END 2023-04-07 19:28 ==
PROVIDERS: Emergency Provider Internal Medicine; PCP Nurse Practitioner Family
DX: S32.402A Unspecified fracture of left acetabulum, initial encounter for closed fracture (principal); F17.290 Nicotine dependence, other tobacco product, uncomplicated; S50.311A Abrasion of right elbow, initial encounter; S00.81XA Abrasion of other part of head, initial encounter; V57.6XXA Passenger in pick-up truck or van injured in collision with fixed or stationary object in traffic accident, initial encounter
CPT/HCPCS: 51702; 72040; 72072; 72100; 72192; 73080; 73522; 80053; 85025; 96374; 96375; 96376; 99285; J1170; J2405; J3010; J7030